=== PATIENT | male | born 1980 | race Caucasian/White ===

== ENCOUNTER 2020-09-06 19:19 | Emergency (ER) | payer OTHER ==
[~2020-09-06] VITALS: Ht 177.8 cm; Wt 79.4 kg
[2020-09-06] MEDS ORDERED: Vibramycin100 MG PO (21:57)
[2020-09-06] MEDS ORDERED: CEPH500 PO (21:57)
[2020-09-06 22:11] LABS: SARS-Cov-2 (COVID-19) PCR, MMC NEGATIVE (NEGATIVE)
[2020-10-28] MEDS ORDERED: SULTRIDS PO (00:36)
[2020-10-28] MEDS ORDERED: CEPH500 PO (00:36)
== END 2020-09-06 22:14 | disposition home or self-care (01) ==
LOC: ER 19:19
PROVIDERS: Emergency Medicine
DX: I89.1 Lymphangitis (principal); I88.9 Nonspecific lymphadenitis, unspecified; F17.200 Nicotine dependence, unspecified, uncomplicated; Z20.822 Contact with and (suspected) exposure to COVID-19
CPT/HCPCS: 71045; 87070; 87075; 87077; 87147; 87186; 87205; 93971; 99284-25; A9270; U0004

== ENCOUNTER 2021-01-11 14:46 | Emergency (ER) | payer OTHER ==
[~2021-01-11] VITALS: Ht 177.8 cm; Wt 63.5 kg
[~2021-01-11 14:46] MED LIST: CEPH500 PO; Norco 5-325 Ta1 EACH PO; ONDA4 PO; SULTRIDS PO; Vibramycin100 MG PO
[2021-01-11 15:25] LABS: Source, Urine Clean Catch
[2021-01-11 15:30] LABS: Appearance, Urine Bloody (Clear); Bilirubin, Urine Neg (Neg); Blood, Urine 3+ (Neg); Color, Urine Red (P-Yellow); Glucose Qualitative, Urine Neg (Neg); Ketones, Urine Neg (Neg); Leukocyte Esterase, Urine Neg (Neg); Nitrite, Urine Neg (Neg); Protein, Urine 4+ (Neg); Specific Gravity, Urine 1.015 (1.003-1.022); Urobilinogen, Urine NORM (Normal)
[2021-01-11 15:50] LABS: Red Blood Cells, Urine TNTC /hpf (0-2); Squamous Epithelial Cells Few /hpf (Few)
[2021-01-11 15:51] LABS: Bacteria Many /hpf
[2021-01-11 15:52] LABS: Amorphous Light (0-Heavy)
[2021-01-11 20:41] LABS: BASOPHILS ABSOLUTE AUTO 0.05 K/mm3 (0.00-0.23); BASOPHILS PERCENT AUTO 1 % (0-2); EOSINOPHILS ABSOLUTE AUTO 0.12 K/mm3 (0.00-0.68); EOSINOPHILS PERCENT AUTO 1 % (0-6); Hematocrit 36.7 % (37.0-53.0); IMMATURE GRAN ABSOLUTE AUTO 0.01 K/mm3 (0.00-0.10); IMMATURE GRAN PERCENT AUTO 0 % (0-1); LYMPHOCYTES ABSOLUTE AUTO 2.41 K/mm3 (0.84-5.20); LYMPHOCYTES PERCENT AUTO 24 % (21-46); MONOCYTES ABSOLUTE AUTO 0.78 K/mm3 (0.16-1.47); MONOCYTES PERCENT AUTO 8 % (4-13); Mean Corpuscular HGB 27.5 pg (26.0-34.0); Mean Corpuscular HGB Conc 32.7 g/dL (31.5-36.5); Mean Corpuscular Volume 84 fL (80-100); Mean Platelet Volume 10.5 fL (9.1-12.4); NEUTROPHILS ABSOLUTE AUTO 6.83 K/mm3 (1.96-9.15); NEUTROPHILS PERCENT AUTO 67 % (41-73); Platelet Count 249 K/mm3 (150-400); RDW Coefficient Variation 13.9 % (11.7-14.2); RDW Standard Deviation 42.9 fL (35.1-46.3); Red Blood Cell Count 4.37 M/mm3 (4.30-5.90)
[2021-01-11 20:59] LABS: Alanine Aminotransfer (ALT/SGP 24 U/L (12-78); Albumin, Blood 3.2 g/dL (3.4-5.0); Albumin/Globulin Ratio 0.6 (0.8-1.8); Alk Phos 101 U/L (50-136); Anion Gap 4 mmol/L (6-16); Aspartate Aminotrans (AST/SGOT 23 U/L (12-37); Bilirubin, Total 0.2 mg/dL (0.1-1.0); Blood Urea Nitrogen 16 mg/dL (8-24); Bun/Creatinine Ratio 18.7 (12.0-20.0); CO2, Blood 26 mmol/L (21-32); Calcium, Blood 8.9 mg/dL (8.5-10.1); Chloride, Blood 106 mmol/L (98-108); Creatinine, Blood 0.86 mg/dL (0.60-1.20); Glomerular Filtration Rate >60 (60-); Glucose, Blood 77 mg/dL (70-99); Potassium, Blood 4.4 mmol/L (3.5-5.5); Sodium, Blood 136 mmol/L (136-145); Total Protein, Blood 8.2 g/dL (6.4-8.2)
[2021-01-13] MEDS ORDERED: SULTRIDS PO (11:26)
== END 2021-01-13 21:19 | disposition home or self-care (01) ==
LOC: ER 14:46
PROVIDERS: Emergency Medicine; Physician Assistant
DX: R31.9 Hematuria, unspecified (principal); K59.00 Constipation, unspecified; F17.200 Nicotine dependence, unspecified, uncomplicated
CPT/HCPCS: 36415; 51700; 51702; 74176; 80053; 81001; 85025; 86850; 86900; 86901; 87086; 96374-59; 96375-59; 99284-25; A9270; J2060; J2270; J2405

== ENCOUNTER 2021-05-20 15:43 | Emergency (ER) | payer OTHER ==
[~2021-05-20] VITALS: Ht 177.8 cm; Wt 86.7 kg
== END 2021-05-20 20:22 | disposition left against medical advice (07) ==
LOC: ER 15:43
DX: M79.604 Pain in right leg (principal); Z53.21 Procedure and treatment not carried out due to patient leaving prior to being seen by health care provider
CPT/HCPCS: 99281

== ENCOUNTER → 2021-05-21 | Outpatient (CLI) | payer OTHER | END | disposition home or self-care (01) | LOC: LAB 14:51 → LAB SHORT 14:51 | DX: M79.604 Pain in right leg (principal) | CPT/HCPCS: 87070; 87077; 87147; 87186; 87205 ==

== ENCOUNTER 2021-07-13 01:22 | Day surgery (SDC) | payer OTHER | END 2021-07-13 23:37 | disposition home or self-care (01) | LOC: WOUND 01:22 | DX: L97.312 Non-pressure chronic ulcer of right ankle with fat layer exposed (principal); L97.812 Non-pressure chronic ulcer of other part of right lower leg with fat layer exposed; F17.200 Nicotine dependence, unspecified, uncomplicated; Z86.718 Personal history of other venous thrombosis and embolism; Z79.01 Long term (current) use of anticoagulants | CPT/HCPCS: A9270; G0463 ==

== ENCOUNTER 2021-07-22 01:47 | Day surgery (SDC) | payer OTHER | END 2021-07-22 23:24 | disposition home or self-care (01) | LOC: WOUND 01:47 | DX: I87.311 Chronic venous hypertension (idiopathic) with ulcer of right lower extremity (principal); L97.312 Non-pressure chronic ulcer of right ankle with fat layer exposed; L97.812 Non-pressure chronic ulcer of other part of right lower leg with fat layer exposed; R31.9 Hematuria, unspecified; I87.2 Venous insufficiency (chronic) (peripheral); I73.9 Peripheral vascular disease, unspecified; Z86.718 Personal history of other venous thrombosis and embolism | CPT/HCPCS: A9270 ==

== ENCOUNTER 2021-07-29 01:42 | Day surgery (SDC) | payer OTHER | END 2021-07-29 23:28 | disposition home or self-care (01) | LOC: WOUND 01:42 | DX: I87.311 Chronic venous hypertension (idiopathic) with ulcer of right lower extremity (principal); L97.812 Non-pressure chronic ulcer of other part of right lower leg with fat layer exposed; L97.312 Non-pressure chronic ulcer of right ankle with fat layer exposed; R31.9 Hematuria, unspecified; I87.2 Venous insufficiency (chronic) (peripheral); I73.9 Peripheral vascular disease, unspecified; Z86.718 Personal history of other venous thrombosis and embolism | CPT/HCPCS: A9270 ==

== ENCOUNTER 2021-08-19 00:37 | Day surgery (SDC) | payer OTHER | END 2021-08-19 22:58 | disposition home or self-care (01) | LOC: WOUND 00:37 | DX: I87.311 Chronic venous hypertension (idiopathic) with ulcer of right lower extremity (principal); L97.812 Non-pressure chronic ulcer of other part of right lower leg with fat layer exposed; L97.312 Non-pressure chronic ulcer of right ankle with fat layer exposed; I87.2 Venous insufficiency (chronic) (peripheral); Z86.718 Personal history of other venous thrombosis and embolism; R31.9 Hematuria, unspecified; Z79.01 Long term (current) use of anticoagulants | CPT/HCPCS: 99406; A9270 ==

== ENCOUNTER 2021-08-21 00:08 | Day surgery (SDC) | payer OTHER | END 2021-08-21 23:00 | disposition home or self-care (01) | LOC: WOUND 00:08 | DX: I87.311 Chronic venous hypertension (idiopathic) with ulcer of right lower extremity (principal); L97.312 Non-pressure chronic ulcer of right ankle with fat layer exposed; R31.9 Hematuria, unspecified; I87.2 Venous insufficiency (chronic) (peripheral); I73.9 Peripheral vascular disease, unspecified; Z86.718 Personal history of other venous thrombosis and embolism ==

== ENCOUNTER 2021-08-26 02:24 | Day surgery (SDC) | payer OTHER | END 2021-08-26 23:59 | disposition home or self-care (01) | LOC: WOUND 02:24 | DX: I87.311 Chronic venous hypertension (idiopathic) with ulcer of right lower extremity (principal); L97.312 Non-pressure chronic ulcer of right ankle with fat layer exposed; L97.812 Non-pressure chronic ulcer of other part of right lower leg with fat layer exposed; Z86.718 Personal history of other venous thrombosis and embolism; R31.9 Hematuria, unspecified; I87.2 Venous insufficiency (chronic) (peripheral); I73.9 Peripheral vascular disease, unspecified | CPT/HCPCS: A9270 ==

== ENCOUNTER 2021-09-02 08:19 | Day surgery (SDC) | payer OTHER | END 2021-09-02 23:02 | disposition home or self-care (01) | LOC: WOUND 08:19 | DX: I87.311 Chronic venous hypertension (idiopathic) with ulcer of right lower extremity (principal); L97.312 Non-pressure chronic ulcer of right ankle with fat layer exposed; L97.812 Non-pressure chronic ulcer of other part of right lower leg with fat layer exposed; R31.9 Hematuria, unspecified; I87.2 Venous insufficiency (chronic) (peripheral); I73.9 Peripheral vascular disease, unspecified; Z86.718 Personal history of other venous thrombosis and embolism | CPT/HCPCS: 99406; A9270 ==

== ENCOUNTER 2021-09-09 01:14 | Day surgery (SDC) | payer OTHER | END 2021-09-09 23:29 | disposition home or self-care (01) | LOC: WOUND 01:14 | DX: I87.311 Chronic venous hypertension (idiopathic) with ulcer of right lower extremity (principal); L97.312 Non-pressure chronic ulcer of right ankle with fat layer exposed; L97.812 Non-pressure chronic ulcer of other part of right lower leg with fat layer exposed; Z86.718 Personal history of other venous thrombosis and embolism; I87.2 Venous insufficiency (chronic) (peripheral); Z79.01 Long term (current) use of anticoagulants; R31.9 Hematuria, unspecified | CPT/HCPCS: 99406; A9270 ==

== ENCOUNTER 2021-09-16 02:29 | Day surgery (SDC) | payer OTHER | END 2021-09-16 23:49 | disposition home or self-care (01) | LOC: WOUND 02:29 | DX: I87.311 Chronic venous hypertension (idiopathic) with ulcer of right lower extremity (principal); L97.812 Non-pressure chronic ulcer of other part of right lower leg with fat layer exposed; L97.319 Non-pressure chronic ulcer of right ankle with unspecified severity; L97.819 Non-pressure chronic ulcer of other part of right lower leg with unspecified severity; Z86.718 Personal history of other venous thrombosis and embolism; I87.2 Venous insufficiency (chronic) (peripheral); I73.9 Peripheral vascular disease, unspecified | CPT/HCPCS: A9270 ==

== ENCOUNTER → 2021-09-23 | Day surgery (SDC) | payer OTHER | LOC: WOUND 01:21 | DX: I87.311 Chronic venous hypertension (idiopathic) with ulcer of right lower extremity (principal); L97.812 Non-pressure chronic ulcer of other part of right lower leg with fat layer exposed; I87.2 Venous insufficiency (chronic) (peripheral); I73.9 Peripheral vascular disease, unspecified; Z86.718 Personal history of other venous thrombosis and embolism; Z79.01 Long term (current) use of anticoagulants | CPT/HCPCS: A9270 ==

== ENCOUNTER 2021-09-30 04:01 | Day surgery (SDC) | payer OTHER | END 2021-09-30 23:20 | disposition home or self-care (01) | LOC: WOUND 04:01 | DX: I87.311 Chronic venous hypertension (idiopathic) with ulcer of right lower extremity (principal); L97.312 Non-pressure chronic ulcer of right ankle with fat layer exposed; L97.819 Non-pressure chronic ulcer of other part of right lower leg with unspecified severity; I87.2 Venous insufficiency (chronic) (peripheral); I73.9 Peripheral vascular disease, unspecified; Z86.718 Personal history of other venous thrombosis and embolism ==

== ENCOUNTER 2021-10-07 00:37 | Day surgery (SDC) | payer OTHER | END 2021-10-07 22:51 | disposition home or self-care (01) | LOC: WOUND 00:37 | DX: I87.311 Chronic venous hypertension (idiopathic) with ulcer of right lower extremity (principal); L97.312 Non-pressure chronic ulcer of right ankle with fat layer exposed; I87.2 Venous insufficiency (chronic) (peripheral); I73.9 Peripheral vascular disease, unspecified; Z86.718 Personal history of other venous thrombosis and embolism | CPT/HCPCS: G0463 ==